=== PATIENT | female | born 1955 | race Caucasian/White ===

== ENCOUNTER 2021-11-01 07:59 | Day surgery (SDC) | payer MEDICARE ==
[~2021-11-01] VITALS: Ht 177 cm; Wt 96.0 kg
[~2021-11-01 07:59] MED LIST: ABILIFY2 MG PO; ACETAMINOPHEN325 MG PO; ALIGN4 MG PO; ALL DAY ALLERGY10 M3 PO; ANASTROZOLE1 M1 PO; ASPIRIN CHEWABL81 MG PO; AZO1 EACH PO; BENADRYL25 M1 PO; BIOTIN1 M1 PO; BLACK COHOSH200 MG PO; BREWER'S YEAST500 MG PO; CALTRATE 600 +1 EAC1 PO; CERTAGEN1 EACH PO; CITRATE OF MAG296 ML PO; COREG 6.25MG6.25 MG PO; CRANBERRY200 MG PO; DEXILANT60 MG PO; FEOSOL325 MG PO; FIBER500 MG PO; FLAXSEED1000 MG PO; IMDUR 30MG TABL30 MG PO; LAXATIVE5 M1 PO; LUNESTA3 MG PO; MAG-OXIDE 400M400 MG PO; MELATONIN5 M2 PO; METHENAMINE HIPP1 GM PO; MYRBETRIQ25 MG PO; NEXIUM40 M1 PO; NEXIUM40 MG PO; NIACIN ER500 MG PO; OS-CAL+D500 MG PO; OXYBUTYNIN CHLOR5 M1 PO; OXYCODONE-ACET1 EAC1 PO; PREMPRO 0.625-1 EAC1 PO; PRISTIQ ER50 MG PO; ROSUVASTATIN CA10 MG PO; SOMA350 MG PO; SPIRONOLACTONE50 M1 PO; SYNTHROID112 MC1 PO; UROCIT-K10 MEQ PO; VALTREX500 MG PO; VITAMIN D-32000 UNIT PO; XARELTO10 MG PO; [UNRECOGNIZED DRUG - OTHER] PO
[2021-11-02 06:20] LABS: BASOPHIL 0.1 % (0-2); EOSINOPHIL 0 % (0-7); HCT 32.9 % (37.0-47.0); HGB 10.8 g/dl (12.5-16.0); LYMPHOCYTE 8.5 % (15-48); MCH 30.5 pg (25.0-31.0); MCHC 32.8 g/dL (32.0-36.0); MCV 92.9 fL (78.0-100.0); MONOCYTE 6.8 % (0-12); MPV 9.5 fL (6.0-9.5); NEUTROPHIL 84.1 % (41-80); NRBC 0; PLT 292 K/uL (150-400); RBC 3.54 M/uL (4.20-5.40); RDW 13.2 % (11.5-14.0); WBC 18.3 K/uL (4.0-10.5)
[2021-11-02 06:50] LABS: BUN/CREAT RATIO (CALC) 22.1 RATIO; CREATININE 0.86 mg/dL (0.51-0.95); POTASSIUM 4.6 mmol/L (3.5-5.1)
[2021-11-02] MEDS ORDERED: XARELTO10 MG PO (08:48)
[2021-11-02] MEDS ORDERED: FEOSOL325 MG PO (08:48)
[2021-11-02] MEDS ORDERED: OXYCODONE-ACET1 EAC1 PO (08:48)
== END 2021-11-02 12:55 | disposition home or self-care (01) ==
LOC: FAS 07:59 → FMS 10:00 → FAS 10:00 → FMS 12:16 → FAS 11-02 12:55 → FMS 11-02 12:55
PROVIDERS: Legal Medicine
DX: M17.12 Unilateral primary osteoarthritis, left knee (principal); M24.562 Contracture, left knee; M25.762 Osteophyte, left knee; M67.262 Synovial hypertrophy, not elsewhere classified, left lower leg; J45.909 Unspecified asthma, uncomplicated; I10 Essential (primary) hypertension; E78.5 Hyperlipidemia, unspecified; Z91.048 Other nonmedicinal substance allergy status; Z96.651 Presence of right artificial knee joint; Z90.710 Acquired absence of both cervix and uterus; Z79.82 Long term (current) use of aspirin; Z88.1 Allergy status to other antibiotic agents; Z88.0 Allergy status to penicillin; Z91.013 Allergy to seafood; Z85.3 Personal history of malignant neoplasm of breast
CPT/HCPCS: 36415; 73560; 80048; 85025; 86850; 86900; 86901; 94010; 97110; 97162; 97166; 97530-GP; 97535; C1713; C1776; J0171; J1100; J1170; J1885; J2250; J2270; J2405; J2704; J2795; J3010; J7120